=== PATIENT | female | born 1970 | race Caucasian/White ===

== ENCOUNTER 2018-10-04 10:09 | Emergency (ER) | payer OTHER ==
[~2018-10-04] VITALS: Ht 157.5 cm; Wt 51.7 kg
[2018-10-04 10:15] VITALS: BP 115/84; Ht 157.5 cm; Wt 51.7 kg
== END 2018-10-04 11:11 | disposition home or self-care (01) ==
LOC: ED 10:09
DX: M25.522 Pain in left elbow (principal); X58.XXXA Exposure to other specified factors, initial encounter; Y93.89 Activity, other specified; Y92.89 Other specified places as the place of occurrence of the external cause; Y99.8 Other external cause status